=== PATIENT | male | born 1965 | race Hispanic/Latino ===

== ENCOUNTER → 2024-03-12 | Emergency (ER) | payer SELFPAY ==
[~2024-03-12] MED LIST: cefTRIAXone (ROCEPHIN) 2 GM VIAL ONE
[2024-03-12 08:52] LABS: Actual Bicarbonate (HCO3a) 15.8 mEq/L (22-28); Analyzer IN Cardio CS ER; Base Excess (BEa) -10.7 mEq/L (-2.0 to +3.0); CO2 Tension 37.7 mmHg (35.0-45.0); Calcium, Ionized (arterial) 1.02 mmol/L (1.12-1.30); Carboxyhemoglobin (COHb) 0.5 gm% (0.0-3.0); Hematocrit-ABG 33 % (42.0-52.0); Hemoglobin (Hb) 11.2 g/dL (14.0-18.0); O2 Tension (PaO2), arterial 99.4 mmHg (> 80.0); Potassium - ABG Lab 3.42 mmol/L (3.70-5.30); Puncture Site RBA; pH, Arterial 7.241 (7.35-7.45)
[2024-03-12 08:54] LABS: ALV-art Gradient 352.575 mmHg (0-20)
[2024-03-12 09:05] LABS: INR-International Normal Ratio 1.2; PTT 45.1 sec (22.0-33.0); Prothrombin Time 13.1 sec (9.5-12.1)
[2024-03-12 09:06] LABS: Hematocrit 28.6 % (38.8-50.0); Hemoglobin 10.7 g/dL (13.5-17.5); MDiff Complete? YES; Mean Corpuscular HGB CONC 37.4 g/dL (32.0-36.0); Mean Corpuscular Hemoglobin 35.5 pg (27.0-33.0); Mean Platelet Volume 11.2 fl (7.4-10.4); Platelet Count 72 10x3/uL (150-450); RBC Distribution Width 12.3 % (11.5-14.5); Red Blood Cell (RBC) Count 3.01 10x6/uL (4.32-5.72); White Blood Cell (WBC) Count 6.5 10x3/uL (3.5-10.5)
[2024-03-12 09:12] LABS: Troponin I 0.027 ng/mL (< 0.028)
[2024-03-12 09:17] LABS: ALT (SGPT) 140 U/L (8-55); AST (SGOT) 517 U/L (5-34); Albumin 2.5 g/dL (3.5-5.0); Alkaline Phosphatase 90 U/L (40-110); Anion Gap 24 mmol/L (10-20); BUN (Urea Nitrogen) 26 mg/dL (8.4-25.7); Bilirubin, Total 3.9 mg/dL (0.2-1.2); Calc. Creatinine Clearance 0 mL/min (70-130); Calcium 7.8 mg/dL (7.8-10.44); Carbon Dioxide 15 mmol/L (22-29); Chloride 83 mmol/L (98-107); Estimated GFR 28; Globulin 3.2 g/dL (2.4-3.5); Glucose 177 mg/dL (70-105); Lipase 57 U/L (8-78); Magnesium 1.4 mg/dL (1.6-2.6); Potassium 3.6 mmol/L (3.5-5.1); Protein, Total 5.7 g/dL (6.0-8.3)
[2024-03-12 09:20] LABS: Critical Call Chemistry NUR.PA@0917; Sodium 118 mmol/L (136-145)
[2024-03-12 10:25] LABS: Band 15 % (5-11); Eosinophils 8 % (0-10); Lymphocytes 8 % (21-51); Metamyelocyte 1 % (0-0); Monocytes 15 % (0-10); Myelocyte 17 % (0-0); Neutrophil 24 % (42-75); Nucleated RBC (Manual Ct) 2 % (0); Other Cell Types 3; Reactive Lymphocytes 8 % (0-10)
[2024-03-12 10:26] LABS: Reflex for Review?? YES
[2024-03-12 10:28] LABS: Actual Bicarbonate (HCO3a) 16.5 mEq/L (22-28); Analyzer IN Cardio CS ER; CO2 Tension 38.5 mmHg (35.0-45.0); Calcium, Ionized (arterial) 0.97 mmol/L (1.12-1.30); Hematocrit-ABG 32 % (42.0-52.0); Hemoglobin (Hb) 10.8 g/dL (14.0-18.0); O2 Tension (PaO2), arterial 414.2 mmHg (> 80.0); Potassium - ABG Lab 3.39 mmol/L (3.70-5.30); Puncture Site RBA; pH, Arterial 7.249 (7.35-7.45)
[2024-03-12 10:28] LABS: Large Platelets SLIGHT (None Seen); Platelet Adequacy Comment Appears Decreased; Polychromasia SLIGHT = 2-3 cells (100X) (0-2/hpf); Smudge Cells SLIGHT
[2024-03-12 10:31] LABS: ALV-art Gradient 250.675 mmHg (0-20)
[2024-03-12 11:46] LABS: Lactic Acid 6.9 mmol/L (0.5-2.2)
== END ==
LOC: CSHERS 08:26
DX: J96.90 Respiratory failure, unspecified, unspecified whether with hypoxia or hypercapnia (principal); R65.11 Systemic inflammatory response syndrome (SIRS) of non-infectious origin with acute organ dysfunction; E87.1 Hypo-osmolality and hyponatremia; E11.9 Type 2 diabetes mellitus without complications
CPT/HCPCS: 36415; 36416; 36600; 71045; 80053; 80307; 82140; 82805; 83605; 83690; 83735; 83880; 84484; 85025; 85060; 85610; 85730; 87040; 87077; 87149; 87186; 93005; 96361; 96365; J0696